=== PATIENT | male | born 1950 | race Caucasian/White ===

== ENCOUNTER 2018-05-17 09:00 | Outpatient (CLI) | payer MEDICARE ==
--- NOTE | 2018-05-17 11:59 | MRI ---
MRI LUMBAR SPINE WITHOUT CONTRAST: Date: 05/17/18 HISTORY: Lumbar radiculopathy. Sciatica. Left leg and buttock pain. Left foot numbness, x6 weeks. COMPARISON: None. FINDINGS: There are Type I Modic changes at the L2-L3 disc space. Lumbar spine vertebral body height is maintai bar. There is no fracture. No significant hyperintensity on the STIR images to suggest ligamentous in jury. Multiple T2 hyperintensities in the right kidney, compatible with cysts. Symmetric signal intensity o f the psoas muscles. Conus medullaris terminates at the inferior aspect of L1. T12-L1: Adequate disc hydration. No significant central canal stenosis. Foramina patent. L1-L2 Adequate disc hydration. No significant central canal stenosis. Foramina patent. L2-L3: Severe loss of disc space height. Generalized disc bulge, ligamentum flavum, and facet hypert rophy result in mild central canal stenosis. Mild to moderate right and left neural foramina narrowin g. The degree of posterior element hypertrophy is mild. L3-L4: Adequate disc hydration. No significant central canal stenosis. Minimal ligamentum flavum thi ckening and facet hypertrophy. No significant central canal stenosis or neural foraminal narrowing. L4-L5: Generalized disc bulge with a subtle T2 and STIR hyperintensity along the posterior margin of the disc, compatible with a small annular fissure. There is minimal flattening of the ventral thecal sac. There is no significant central canal stenosis. Right neural foramen is patent. Mild to moderat e left foraminal narrowing due to disc material. L5-S1: Adequate disc hydration. There is no significant central canal stenosis. Bilateral facet hype rtrophy, with fluid in both facet joints. Mild bilateral foraminal narrowing. IMPRESSION: Degenerative changes of the lumbar spine as above. POS: [facility]
== END 2018-05-17 09:01 | disposition home or self-care (01) ==
LOC: BICMRI 09:00
PROVIDERS: ATTEND Orthopaedic Surgery
DX: M54.40 Lumbago with sciatica, unspecified side (principal); G89.29 Other chronic pain; M47.816 Spondylosis without myelopathy or radiculopathy, lumbar region
CPT/HCPCS: 72148

== ENCOUNTER 2018-09-04 09:34 | Outpatient (CLI) | payer MEDICARE ==
[2018-09-04] MEDS ORDERED: Gadobenate Dimeglumine 529 MG/1 ML (20ML VIAL) ONE (10:00)
--- NOTE | 2018-09-04 11:00 | MRI ---
CERVICAL SPINE MRI WITH AND WITHOUT CONTRAST: Date: 09/04/18 COMPARISON: None HISTORY: Bilateral shoulder pain, prior cervical spine surgery. TECHNIQUE: Multiplanar multisequence MR imaging of the cervical spine obtained with and without contr ast. FINDINGS: Anterior diskectomy and fusion hardware present at C4-5/C5-6. There is anterolisthesis at C3-4 measur ing 4 mm. The sagittal STIR imaging demonstrates no focal area of osseous marrow edema. There is fluid signal i ntensity within bilateral facet joints at C6-7 and within the left C7-T1 facet joint. C2-3: There is bilateral facet and uncovertebral osteophyte formation, right greater than left. There is moderate right neural foraminal stenosis. No significant central canal or left neural foraminal stenosis. C3-4: There is disc desiccation and disc space narrowing with bilateral facet and uncovertebral osteo phyte formation. There is mild central canal stenosis and moderate/severe bilateral neural foraminal stenosis. C4-5: Mild bilateral facet hypertrophy. No significant central canal or neural foraminal stenosis. C5-6: Mild bilateral facet hypertrophy. Mild right neural foraminal stenosis. No significant central canal or left neural foraminal stenosis. C6-7: There is disc space narrowing and disc desiccation with mild disc bulge partially effacing the ventral thecal sac and causing a mild degree of central canal stenosis. Bilateral facet and uncovertebral osteophyte formation with moderate bilateral neural foraminal stenosis. C7-T1: Bilateral facet hypertrophy noted with mild bilateral neural foraminal stenosis. No significan t central canal stenosis. There is no focal area of abnormal signal intensity identified within the cervical cord. The postcontrast imaging demonstrates no abnormal enhancement involving the contents of the thecal sa c. There is no abnormal enhancement involving imaged osseous structures or intervertebral discs. IMPRESSION: Multilevel postoperative and degenerative change noted within the cervical spine as detailed above. Transcribed Date/Time: 09/04/2018 11:53 AM
== END 2018-09-04 09:35 | disposition home or self-care (01) ==
LOC: TBSIIMAG 09:34
PROVIDERS: ATTEND Neurological Surgery
DX: M47.22 Other spondylosis with radiculopathy, cervical region (principal); M54.2 Cervicalgia; Z98.890 Other specified postprocedural states
CPT/HCPCS: 72156; 82565

== ENCOUNTER 2018-10-30 08:49 | Outpatient (CLI) | payer MEDICARE ==
--- NOTE | 2018-10-30 15:32 | EKG ---
Test Reason : Blood Pressure : / mmHG Vent. Rate : 056 BPM Atrial Rate : 056 BPM P-R Int : 210 ms QRS Dur : 118 ms QT Int : 390 ms P-R-T Axes : 016 -11 031 degrees QTc Int : 376 ms Sinus bradycardia with 1st degree A-V block Non-specific intra-ventricular conduction delay Borderline ECG Confirmed by JAMAL CORDOVA, DR. Douglas ([id number]) on 10/30/2018 3:32:35 PM Referred By: MARIO Confirmed By:DR. Stella BERRY MD
== END 2018-10-30 08:50 | disposition home or self-care (01) ==
LOC: LABBT 08:49
PROVIDERS: ATTEND Orthopaedic Surgery Hand Surgery
DX: Z01.818 Encounter for other preprocedural examination (principal); M72.0 Palmar fascial fibromatosis [Dupuytren]
CPT/HCPCS: 93005; 93010

== ENCOUNTER 2018-11-03 08:09 | Outpatient (CLI) | payer MEDICARE ==
[2018-11-03 08:50] LABS: #Eosinphils 0.6 thou/uL (0.0-0.7); #Lymphocytes 1.1 thou/uL (1.20-3.40); #Monocytes 0.5 thou/uL (0.11-0.59); #Neutrophils 2.3 thou/uL (1.40-6.50); %Basophils 0.8 % (0.0-1.0); %Eosinophils 13.7 % (0.0-10.0); %Lymphocytes 23.5 % (21.0-51.0); %Monocytes 11.6 % (0.0-10.0); %Neutrophils 50.4 % (42.0-75.0); Hemoglobin 14.6 g/dL (14.0-18.0); Mean Corpuscular HGB CONC 34.5 g/dL (32.0-36.0); Mean Corpuscular Hemoglobin 31.8 pg (27.0-31.0); Mean Corpuscular Volume 92.1 fL (78.0-98.0); Mean Platelet Volume 7.6 fL (7.4-10.4); Platelet Count 173 thou/uL (130-400); RBC Distribution Width 11.6 % (11.5-14.5); Red Blood Cell (RBC) Count 4.57 mill/uL (4.70-6.10); White Blood Cell (WBC) Count 4.6 thou/uL (4.8-10.8)
[2018-11-03 08:51] LABS: Bacteria/HPF None Seen HPF (None Seen); Bilirubin Negative (Negative); Blood, Urine Negative (Negative); Clarity Clear (Clear); Glucose, Urine (Dipstick) Normal (Negative); Leukocyte 250 Leu/uL (Negative); Mucous/LPF Rare LPF (<2+); Nitrite Negative (Negative); Protein, Urine (Dipstick) 30 mg/dL (Neg-Trace); RBC/HPF 0-3 HPF (0-3); Squamous Epithelial 0-3 HPF (0-3); Urobilinogen Normal mg/dL (Less than 2)
[2018-11-03 09:10] LABS: Anion Gap 13 mmol/L (10-20); BUN (Urea Nitrogen) 19 mg/dL (8.4-25.7); Calc. Creatinine Clearance 0 mL/min (70-130); Calcium 9.7 mg/dL (7.8-10.44); Carbon Dioxide 25 mmol/L (23-31); Chloride 104 mmol/L (98-107); Estimated GFR-MDRD 50; Glucose 103 mg/dL (80-115); Potassium 4.3 mmol/L (3.5-5.1); Sodium 138 mmol/L (136-145)
== END 2018-11-03 08:10 | disposition home or self-care (01) ==
LOC: LABBT 08:09
PROVIDERS: ATTEND Orthopaedic Surgery Hand Surgery
DX: Z01.812 Encounter for preprocedural laboratory examination (principal); M72.0 Palmar fascial fibromatosis [Dupuytren]
CPT/HCPCS: 80048; 81001; 85025

== ENCOUNTER 2018-11-06 11:47 | Day surgery (SDC) | payer MEDICARE ==
[~2018-11-06 11:47] MED LIST: Glycopyrrolate 0.2 MG/ML 5 ML SYRINGE ONE; Ketorolac Tromethamine 30 MG/ML VIAL ONE; Lidocaine 1% PF 5 ML VIAL ONE; Metoclopramide HCl 10 MG/2 ML VIAL ONE; Ondansetron PF 4 MG/2 ML Vial ONE; PHENYLEPHRINE-NS 100 MCG/ML 10 ML SYRINGE ONE; PROPOFOL 200 MG/20 ML VIAL ONE
[2018-11-06] MEDS ORDERED: Bacitracin Zinc Ointment 30 gm TUBE ONE (13:05)
[2018-11-06] MEDS ORDERED: Bupivacaine PF 0.5% 30 ML VIAL ONE (13:05)
[2018-11-06] MEDS ORDERED: Betamet Acet/Betamet Na Ph 30 MG/5 ML VIAL ONE (13:05)
[2018-11-06] MEDS ORDERED: ceFAZolin Sodium (SDC) 2 GM/100 ML BAG ONE (13:26)
[2018-11-06] MEDS ORDERED: Fentanyl 100 MCG/2 ML VIAL ONE (14:03)
--- NOTE | 2018-11-07 10:48 | OP ---
DATE OF PROCEDURE: 11/06/2018 PREOPERATIVE DIAGNOSIS: 1. Palmar ring finger, middle finger, small finger Dupuytren's cord with neurovascular contracture within the cord. 2. Thumb Dupuytren's cord (both hand with separate incisions). PROCEDURES PERFORMED: 1. Through the primary incision, ring finger, middle finger and radial index and ulnar index finger digital nerve neuroplasty. 2. Palmar subtotal fasciectomy without Z-plasty. We harvested an 8 cm long by 8 mm thick Dupuytren's cord with multiple skin dimples making a complex procedure/22 modifier. 3. Thumb, ring finger, middle finger digital neuroplasty x5. 4. Thumb Dupuytren's cord excision via separate incision (0.5 cm x 5 cm long) at the palmar thumb. SPECIMENS SENT: Yes, the thumb cord sent as a separate specimen from the palmar central digital cord. INDICATION FOR PROCEDURE: The patient with a cord, with the thumb only about 10 degrees loss of MP extension, but has lost approximately 40 degrees MP and 30 degrees PIP extension at the ring finger. DESCRIPTION OF PROCEDURE: After successful general endotracheal anesthesia, the limb was prepped and draped. The patient's cord was thickened over the ring finger and was here to send it outlined based on the palpable cord, but up to the level of group home between the PIP joint and the distal interphalangeal joint. thumb was a cord that was deepest at the webspace and an incision Isatu type was outlined here as well. It will be addressed later. We injected all sites in equal amounts of 0.5% Marcaine without epinephrine, waited 3 minutes, inflated the tourniquet and after exsanguinating the limb we began. We were very careful to go through all the subcutaneous tissue, the dermis on both sites approaching the palmar site first. We carried the skin and subcutaneous tissue, began approximately the very thick cord almost a cm thick. We elevated it off the neurovascular bundle proximal to include the arch, and then began to follow dissection when we noticed that the ulnar neurovascular bundle was hard to visualize. It was thus because it was pulled almost into the cord and superficially. Once we dissected bluntly around this, we found the cord now extended with tentacles from the ring finger to the long finger and from the ring finger to the small finger. We elevated the skin, had to create a 2 cm incision along the middle finger and here we were able to separate neurovascular bundles both sides of the ring finger, both sides of the long finger, and the radial small finger to perform a formal digital nerve neuroplasty under magnification. Once this was done, it was just a matter of picking the correct plane to remove the Dupuytren's contracture/cord and that is what we did. The patient then had this entire area unroof with the nerves not completely from the cord after being pulled midline superficial and rotated. The artery was intact and we then released the tourniquet. After we released the tourniquet, we then finished elevating the mass, which was over 8 cm long and almost 0.8 to 0.9 cm in diameter. We sent it as a specimen. There was excellent hemostasis here. We then irrigated, placed Celestone over the tendon sheath and the nerve itself, which we inspected and found to be intact. There was no evidence of any other abnormality at this site. The patient then had with the tourniquet deflated, 3 mL of Celestone placed along the nerve in the area where it was most brought to the midline superficial while now laid back in the position. We then closed this incision with interrupted 4-0 nylon, the digit remained pink as the Janee was deflated, and then we finished to close with simple 4-0 nylon in mattress pattern. We then reinflated the tourniquet, placed 10 mL of Marcaine in the thumb for digital nerve block, and then exsanguinated the limb, inflated the tourniquet to 250 mmHg pressure. The first tourniquet time was 100 minutes. The patient had the incision carried through skin and subcutaneous tissue medially, identified the radial branch of the digital nerve protected as we from both the fascia and from the connection to other structures. We then did the same thing on the ulnar side and this time we were able to dissect back more proximal. We found via neuroplasty the ulnar digital nerve, protected it, and then elevated the entire mass. We now deflated the tourniquet, again obtained hemostasis, and we also was able to close the wound primarily with interrupted 4-0 nylon both here and at the separate thumb incision. Now, we placed him in a bulky dressing with IP joints all extended to 0. The patient had no further abnormalities. We closed the wound for hemostasis, obtained interrupted 4-0 nylon in mattress pattern and there was no evidence of anesthetic or operative complication. Job ID: [id number]
== END 2018-11-06 20:30 | disposition home or self-care (01) ==
LOC: SDC 11:47
PROVIDERS: ATTEND Orthopaedic Surgery Hand Surgery
PROC: 0JNJ0ZZ Release Right Hand Subcutaneous Tissue and Fascia, Open Approach (ICD-10-PCS; principal; 2018-11-06)
PROC: 0LN70ZZ Release Right Hand Tendon, Open Approach (ICD-10-PCS; 2018-11-06)
PROC: 0LN70ZZ Release Right Hand Tendon, Open Approach (ICD-10-PCS; 2018-11-06)
DX: M72.0 Palmar fascial fibromatosis [Dupuytren] (principal); I10 Essential (primary) hypertension; E11.9 Type 2 diabetes mellitus without complications; Z88.8 Allergy status to other drugs, medicaments and biological substances
CPT/HCPCS: 36416; 88304; J0690; J0702; J1885; J2001; J2405; J2704; J2765; J3010; S0020

== ENCOUNTER 2019-01-01 17:00 | Outpatient (CLI) | payer MEDICARE | END 2019-01-01 17:01 | disposition home or self-care (01) | LOC: SLEEPLAB 17:00 | PROVIDERS: ATTEND Internal Medicine | DX: G47.33 Obstructive sleep apnea (adult) (pediatric) (principal); R53.83 Other fatigue; G47.00 Insomnia, unspecified; E66.9 Obesity, unspecified; I10 Essential (primary) hypertension; E11.9 Type 2 diabetes mellitus without complications; Z68.31 Body mass index [BMI] 31.0-31.9, adult | CPT/HCPCS: 95806 ==

== ENCOUNTER 2019-02-26 20:30 | Outpatient (CLI) | payer MEDICARE | END 2019-02-26 20:31 | disposition home or self-care (01) | LOC: SLEEPLAB 20:30 | PROVIDERS: ATTEND Internal Medicine | DX: G47.33 Obstructive sleep apnea (adult) (pediatric) (principal); I10 Essential (primary) hypertension; E11.9 Type 2 diabetes mellitus without complications; E66.9 Obesity, unspecified; G47.31 Primary central sleep apnea; G47.00 Insomnia, unspecified; R53.83 Other fatigue | CPT/HCPCS: 95811 ==